=== PATIENT | male | born 1950 | race Caucasian/White ===

== ENCOUNTER 2023-06-02 09:59 | Outpatient (AMB) | payer OTHER, SELFPAY ==
--- NOTE | 2023-06-02 10:28 | MHC.PC.OV ---
Vital Signs 06/02/23 10:29 Height 5 ft 5.75 in Weight 243 lb BMI 39.5 BP 122/78 Blood Pressure Location Lt brachial Position Sitting Pulse 92 Pulse Source Pulse Oximeter Pulse Oximetry (%) 95 Oxygen Delivery Method Room Air Intake Visit Reasons: CHIEF OF VITAL STATISTICS/ Diabetes/ Joint pain Intake Note: Patient is a new patient here to establish care for DMII, COPD, Hx of colon cancer (no colon), Knee pain. Transferring care from [facility], Dr. Moreno in [place] fax: [phone]. Medical records have been requested today. Pt is not taking any previous medications per pt all meds are causing diarrhea. Pt requesting only inhaler refill for his COPD. 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 Accompanied by: Self / Same As Patient Allergies No Known Allergies Allergy (Verified 06/02/23 10:37) Medication List - Last Reconciled 06/02/23 by Jazz Gaines, MELONIE albuterol sulfate 90 mcg/actuation inhalation atorvastatin 20 mg PO DAILY lisinopril 20 mg PO DAILY metformin 1,000 mg PO BID pioglitazone 45 mg PO DAILY Tobacco use date assessed: 06/02/23 Fall risk assessment: No Falls in past year Last assessed Fall Risk: 06/02/23 Dental Screening Dental Screen Date: 06/02/23 Did you have a dental visit in the last 12 months?: No Did you have a dental problem in the last 6 months where you did not have access to dental care?: No Was dental information given to patient?: Yes HPI HPI Comments History of Present Illness Details 72-year-old male new patient presents today to establish care. Past medical history significant for type 2 diabetes mellitus, hypertension, hypercholesteremia, COPD, bilateral knee arthritis, L5-S1 spondylothesis, status post colon total resection. Patient reports that he does not take any of his medications by mouth. Per medication list patient reports he is supposed to be taking lisinopril 20 mg daily, pioglitazone 45mg daily,metformin 1,000mg,atorvastation 20mg daily. Patient reports due to colon Being removed all medications by mouth cause him to have explosive diarrhea and he refuses to take any medications. Patient denies having diarrhea with eating food. Patient reports he did have his pneumonia vaccine, RSV vaccine in flu shot at [facility] he will fax over records to us. Fasting blood work ordered. Patient reports recently moved from [place] 6 months ago, previous PCP Dr. Moreno. [facility] Medical History (Updated 06/02/23 @ 11:04 by MELONIE Prakash) Spondylolisthesis at L5-S1 level Degenerative arthritis of knee, bilateral Surgical History (Updated 06/02/23 @ 10:48 by MELONIE Prakash) History of right hip replacement Status post right colon removal Family History (Updated 06/02/23 @ 10:50 by MELONIE Prakash) Mother No problems noted. Father Leukemia Social History (Updated 06/02/23 @ 10:51 by MELONIE Prakash) Housing: House Alcohol intake: current Alcohol intake frequency: a few times a month Patient Tobacco Use Status: Former Tobacco user Quit Date: 2014 Tobacco use type: Cigarette e-Cigarette/Vaping Use: Currently Using Substance Use Type: Marijuana service: No Current occupational status: retired and disabled Cognitive needs: No Hearing needs: No Vision needs: Yes Questionnaire PHQ-9 Over the last 2 weeks, how often have you been bothered by any of the following problems? 1. Little interest or pleasure in doing things: not at all 2. Feeling down, depressed, or hopeless: not at all 3. Trouble falling or staying asleep, or sleeping too much: not at all 4. Feeling tired or having little energy: not at all 5. Poor appetite or overeating: not at all 6. Feeling bad about yourself - or that you are a failure or have let yourself or your family down: not at all 7. Trouble concentrating on things, such as reading the newspaper or watching television: not at all 8. Moving or speaking so slowly that other people could have noticed. Or the opposite - being so fidgety or restless that you have been moving around a lot more than usual: not at all 9. Thoughts that you would be better off or of hurting yourself in some way: not at all Total score: 0 Depression Screening Interpretation: Negative Depression Screening Done: Yes 95739 - PHQ-9 Billing: Yes Source: Developed by Drs. Arnaldo Haskins, Flor Lynch, Speedy Solis and colleagues, with an educational ivett from [facility]. Thrive Questionnaire Date Thrive assessed: 06/02/23 I am a: Patient What is your living situation today?: I have a steady place to live (Move from [place]/Staying with a sister. ) Within the past 12 months, did the food you bought not last and you didn't have the money to get more?: Never true Within the past 12 months, did you worry whether your food would run out before you got money to buy more?: Never true Do you have trouble paying for medicines?: No Do you have trouble getting transportation to medical appointments?: No Do you have trouble paying your heating and electricity bill?: No Do you have trouble taking care of your child, family member or friend?: No Do you have trouble with day-to-day activities such as bathing, preparing meals, shopping, managing finances, etc.?: No Are you currently unemployed and looking for a job?: No Are you interested in more education?: No Please select the resources that you would like help with: None Currently or been in a relationship where the following occur: no concerns reported AUDIT C Alcohol Use Questionnaire (AUDIT-C) 1. How often do you have a drink containing alcohol?: Monthly or less 2. How many drinks containing alcohol do you have on a typical day when you are drinking?: 1 or 2 3. How often do you have six or more drinks on one occasion?: Never Total Score: 1 NITESH-7 AMB Questionnaire NITESH-7 Date NITESH - 7 assessed: 06/02/23 Feeling nervous, anxious, or on edge: 0 = Not at all Not being able to stop or control worryin = Not at all Worrying too much about different things: 0 = Not at all Trouble relaxin = Not at all Being so restless that it is hard to sit still: 0 = Not at all Becoming easily annoyed or irritable: 0 = Not at all Feeling afraid as if something awful might happen: 0 = Not at all Total NITESH-7 score (0-4 normal; 5-9 mild; 10-14 moderate; 15-21 severe): 0 Source: Developed by Drs. Arnaldo Haskins, Flor Lynch, Speedy Solis and colleagues, with an educational ivett from [facility]. NITESH-7 Assessment Billing NITESH-7 Assessment Tool: NITESH-7 Assessment 18711 Review of Systems Const Denies chills, Denies fatigue, Denies fever(s) and Denies poor appetite Eyes Denies no additional complaints ENT Reports Normal hearing present Card Denies chest pain, Denies syncope, Denies rapid heart rate and Denies dyspnea Resp Denies cough and Denies dyspnea GI Denies change in stool character, Denies constipation, Denies diarrhea, Denies nausea and Denies vomiting Denies dysuria, Denies urinary frequency and Denies urinary urgency Neuro Reports Normal hearing present, Denies confusion and Denies syncope Psych Denies confusion Endo Denies fatigue Physical exam (Primary Care) Vital Signs: Last Vital Signs Pulse 92 06/02/23 10:29 BP 122/78 06/02/23 10:29 Pulse Ox 95 06/02/23 10:29 Oxygen Delivery Method Room Air 06/02/23 10:29 BMI result Body Mass Index 39.5 Tobacco/Smoking Status: Tobacco use Status Tobacco use date assessed 06/02/23 06/02/23 10:37 Patient Tobacco Use Status Former Tobacco user 06/02/23 10:37 Tobacco use type Cigarette 06/02/23 10:37 e-Cigarette/Vaping Use Currently Using 06/02/23 10:37 Depression Screening Interpretation: Negative Currently or been in a relationship where the following occur: no concerns reported Const General: No confusion Orientation/consciousness: No confusion HENMT Head: Yes normocephalic and Yes atraumatic Eyes Conjunctivae: conjunctivae normal Chest Chest palpation & inspection: normal inspection of the chest Resp Effort & Inspection: normal respiratory effort Auscultation: clear to auscultation bilaterally, no crackles, no rhonchi and no wheezes Cardio Rate: regular rate Rhythm: regular rhythm Heart sounds: S1 normal heart sound present and S2 normal heart sound present Peripheral pulses: dorsalis pedis present GI Inspection: Yes normal to inspection General: Yes no CVA tenderness Back/Spine/Pelvis Back: no CVA tenderness Neuro General: No confusion Cranial nerves: Yes Normal hearing present Extrem General: No edema Assessment and Plan Assessment & Plan (1) Hypertension: Code(s): I10 - Essential (primary) hypertension Plan: Follow low-salt diet. Blood pressure below goal today 122/78. (2) Hypercholesteremia: Code(s): E78.00 - Pure hypercholesterolemia, unspecified Plan: Avoid fried foods, chicken skin, eggs, butter,margarine, pastries and?? red meat. Fasting lipid panel ordered. (3) Type 2 diabetes mellitus: Code(s): E11.9 - Type 2 diabetes mellitus without complications Plan: Hemoglobin A1c ordered. Patient refuses to take previously prescribed metformin and pioglitazone, as noted in HPI patient refuses to take any medications by mouth as it causes him to have explosive diarrhea. Patient made aware that sometimes metformin can cause GI sent to if you would consider just taking pioglitazone or trailing reducing the dose of metformin. Patient states he will not take any medications by mouth no matter what they are. (4) COPD (chronic obstructive pulmonary disease): Code(s): J44.9 - Chronic obstructive pulmonary disease, unspecified Plan: Continue on albuterol inhaler as needed. Offered referral to pulmonology however patient declines. Plan Follow-up in 3 months for physical exam Orders: Orders Lipid Panel Today Z13.220 - Encounter for screening for lipoid disorders TSH reflex Free T4 Today Z13.29 - Encounter for screening for other suspected endocrine disorder Complete Blood Count Auto Diff Today Z13.0 - Encounter for screening for diseases of the blood and blood-forming organs and certain disorders involving the immune mechanism Comprehensive [place]. Panel Fast Today E11.9 - Type 2 diabetes mellitus without complications Hemoglobin A1c Today E11.9 - Type 2 diabetes mellitus without complications Medications: New albuterol sulfate 90 mcg/actuation 2 puffs inhalation Q4-6H 6.7 grams 0RF J44.9 - Chronic obstructive pulmonary disease, unspecified Coding Level of Care Code New Pt Level 4 (16838) Diagnoses Hypertension I10 Hypercholesteremia E78.00 Type 2 diabetes mellitus E11.9 COPD (chronic obstructive pulmonary disease) J44.9 Additional Codes NITESH-7 Assessment Billing - NITESH-7 Assessment Tool: NITESH-7 Assessment [id number] ([id number])
[2023-06-02 10:29] VITALS: BP 122/78; PULSE 92; O2SAT 95; BMI 39.5
== END 2023-06-02 11:04 | disposition home or self-care (01) ==
PROVIDERS: PCP Nurse Practitioner Family; Visit Provider Nurse Practitioner Family
DX: I10 Essential (primary) hypertension (principal); E78.00 Pure hypercholesterolemia, unspecified; E11.9 Type 2 diabetes mellitus without complications; J44.9 Chronic obstructive pulmonary disease, unspecified
CPT/HCPCS: 99204

== ENCOUNTER 2024-01-07 10:08 | Outpatient (AMB) | payer OTHER, SELFPAY ==
[2024-01-07 10:10] VITALS: BP 142/80; PULSE 88; O2SAT 93; BMI 38.7
--- NOTE | 2024-01-07 10:10 | MHC.PC.OV ---
Vital Signs 01/07/24 10:10 Height 5 ft 5.75 in Weight 238 lb 0.4 oz BMI 38.7 BP 142/80 H Blood Pressure Location Lt brachial Position Sitting Pulse 88 Pulse Source Pulse Oximeter Pulse Oximetry (%) 93 Oxygen Delivery Method Room Air Intake Visit Reasons: Trans. of Care from AO-Physical Exam - see comment Hospitality Coordinator Required: No Allergies No Known Allergies Allergy (Verified 01/07/24 10:33) Medication List - Last Reconciled 01/07/24 by Musa Lezama MD albuterol sulfate 90 mcg/actuation 2 puffs inhalation Q4-6H ascorbic acid (vitamin C) 1 g PO Q6H cholecalciferol (vitamin D3) 50 mcg PO DAILY cyanocobalamin (vitamin B-12) 1,000 mcg PO DAILY multivit with min-folic acid 120 mcg (Men's Multivitamin Gummies) 1 tab PO DAILY naproxen sodium (Aleve) 440 mg PO DAILY Tobacco use date assessed: 01/07/24 Fall risk assessment: No Falls in past year Last assessed Fall Risk: 01/07/24 Dental Screening Dental Screen Date: 01/07/24 Did you have a dental visit in the last 12 months?: No Did you have a dental problem in the last 6 months where you did not have access to dental care?: No HPI Trans. of Care from AO-Physical Exam - see comment HPI Details 73-year-old obese male with diabetes mellitus COPD hypertension hypercholesterolemia 1st time being seen. She was previously seen here in the office in 05/29/2023 patient has a history of colon cancer and had right colectomy. [facility] Medical History (Updated 01/07/24 @ 10:53 by Musa Lezama MD) Spondylolisthesis at L5-S1 level Degenerative arthritis of knee, bilateral Surgical History (Updated 01/07/24 @ 10:51 by Musa Lezama MD) S/P foot surgery, right H/O hand surgery History of right hip replacement Status post right colon removal Family History (Updated 06/02/23 @ 10:50 by MELONIE Prakash) Mother No problems noted. Father Leukemia Social History (Updated 01/07/24 @ 10:53 by Musa Lezama MD) Housing: House Alcohol intake: current Alcohol intake frequency: a few times a month Comment: once Q 2 week 1-[address] [facility] Patient Tobacco Use Status: Former Tobacco user Quit Date: 2014 Tobacco use type: Cigarette Years Smoked: quit 2015 pack a day 30 year e-Cigarette/Vaping Use: Currently Using Substance Use Type: Marijuana service: No Current occupational status: retired and disabled Cognitive needs: No Hearing needs: No Vision needs: Yes Questionnaire PHQ-9 Over the last 2 weeks, how often have you been bothered by any of the following problems? 1. Little interest or pleasure in doing things: not at all 2. Feeling down, depressed, or hopeless: several days 3. Trouble falling or staying asleep, or sleeping too much: not at all 4. Feeling tired or having little energy: not at all 5. Poor appetite or overeating: not at all 6. Feeling bad about yourself - or that you are a failure or have let yourself or your family down: not at all 7. Trouble concentrating on things, such as reading the newspaper or watching television: nearly every day 8. Moving or speaking so slowly that other people could have noticed. Or the opposite - being so fidgety or restless that you have been moving around a lot more than usual: not at all 9. Thoughts that you would be better off or of hurting yourself in some way: not at all Total score: 4 Depression Screening Interpretation: Negative Depression Screening Done: Yes 64173 - PHQ-9 Billing: Yes Source: Developed by Drs. Arnaldo Haskins, Flor Lynch, Speedy Solis and colleagues, with an educational ivett from [employer]. Thrive Questionnaire Date Thrive assessed: 01/07/24 I am a: Patient What is your living situation today?: I have a steady place to live Within the past 12 months, did the food you bought not last and you didn't have the money to get more?: Never true Within the past 12 months, did you worry whether your food would run out before you got money to buy more?: Never true Do you have trouble paying for medicines?: No Do you have trouble getting transportation to medical appointments?: No Do you have trouble paying your heating and electricity bill?: No Do you have trouble taking care of your child, family member or friend?: No Do you have trouble with day-to-day activities such as bathing, preparing meals, shopping, managing finances, etc.?: No Are you currently unemployed and looking for a job?: No Are you interested in more education?: No Please select the resources that you would like help with: None Currently or been in a relationship where the following occur: no concerns reported THRIVE Score: 0 AUDIT C Alcohol Use Questionnaire (AUDIT-C) 1. How often do you have a drink containing alcohol?: Monthly or less 2. How many drinks containing alcohol do you have on a typical day when you are drinking?: 1 or 2 3. How often do you have six or more drinks on one occasion?: Never Total Score: 1 NITESH-7 AMB Questionnaire NITESH-7 Date NITESH - 7 assessed: 01/07/24 Feeling nervous, anxious, or on edge: 1 = Several days Not being able to stop or control worryin = Several days Worrying too much about different things: 0 = Not at all Trouble relaxin = Not at all Being so restless that it is hard to sit still: 0 = Not at all Becoming easily annoyed or irritable: 0 = Not at all Feeling afraid as if something awful might happen: 0 = Not at all Total NITESH-7 score (0-4 normal; 5-9 mild; 10-14 moderate; 15-21 severe): 2 Source: Developed by Drs. Arnaldo Haskins, Flor Lynch, Speedy Solis and colleagues, with an educational ivett from [employer]. NITESH-7 Assessment Billing NITESH-7 Assessment Tool: NITESH-7 Assessment 29952 Physical exam (Primary Care) Vital Signs: Last Vital Signs Pulse 88 01/07/24 10:10 BP 142/80 H 01/07/24 10:10 Pulse Ox 93 01/07/24 10:10 Oxygen Delivery Method Room Air 01/07/24 10:10 BMI result Body Mass Index 38.7 Tobacco/Smoking Status: Tobacco use Status Tobacco use date assessed 01/07/24 01/07/24 10:11 Patient Tobacco Use Status Former Tobacco user 01/07/24 10:11 Tobacco use type Cigarette 01/07/24 10:11 e-Cigarette/Vaping Use Currently Using 01/07/24 10:11 PHQ-9: PHQ-9 Score PHQ-9: Total score 4 01/07/24 10:36 Depression Screening Interpretation: Negative Thrive Assessment: Date of Thrive Assessment Date Thrive assessed 01/07/24 01/07/24 10:11 Currently or been in a relationship where the following occur: no concerns reported Const General: alert; No acute distress Eyes Conjunctivae: conjunctivae normal Resp Auscultation: clear to auscultation bilaterally Cardio Rate: regular rate Rhythm: regular rhythm GI Inspection: Yes normal to inspection Extrem General: Yes normal to inspection and No edema Results AMB Hemoglobin A1c AMB Hemoglobin A1c 10.7 % Last Edit by SHAYY Buchanan on 01/07/24 10:45 Assessment and Plan Assessment & Plan (1) History of colon cancer: Comment: 2019 Code(s): Z85.038 - Personal history of other malignant neoplasm of large intestine Plan: Patient is advised to follow-up with Gastroenterology (2) Type 2 diabetes mellitus: Code(s): E11.9 - Type 2 diabetes mellitus without complications Plan: Decrease the amount of carbohydrate intake, pasta, bread, rice and potatoes are all sugar and that is aside from all the sweet stuff, remember that fruits are good but they are Sweet also. Declined oral medications due to diarrhea (3) Hypertension: Code(s): I10 - Essential (primary) hypertension Plan: Noted blood pressure to be elevated (4) Hypercholesteremia: Code(s): E78.00 - Pure hypercholesterolemia, unspecified Plan: Avoid fried foods, chicken skin, eggs, butter margarine, pastries and meat. Be it pork or beef they have a lot of cholesterol advised to get the blood work LDL goal of less than 100 and triglyceride of less than 150 (5) COPD (chronic obstructive pulmonary disease): Code(s): J44.9 - Chronic obstructive pulmonary disease, unspecified Plan: Patient on albuterol. (6) History of nicotine dependence: Code(s): Z87.891 - Personal history of nicotine dependence Orders: Orders AMB Hemoglobin A1c Today E11.9 - Type 2 diabetes mellitus without complications Referrals Ophthalmology Referral E11.9 - Type 2 diabetes mellitus without complications Gastroenterology Referral Z85.038 - Personal history of other malignant neoplasm of large intestine Lung Cancer Screening Referral Z87.891 - Personal history of nicotine dependence Podiatry Referral E11.9 - Type 2 diabetes mellitus without complications Medications: New blood sugar diagnostic (FreeStyle Lite Strips) As directed check the BS TID 300 ea 3RF E11.65 - Type 2 diabetes mellitus with hyperglycemia, E11.9 - Type 2 diabetes mellitus without complications lancets (FreeStyle Lancets) As directed check BS QD 100 ea 3RF E11.65 - Type 2 diabetes mellitus with hyperglycemia, E11.9 - Type 2 diabetes mellitus without complications blood-glucose meter (FreeStyle Lite Meter kit) As directed 1 ea 0RF E11.65 - Type 2 diabetes mellitus with hyperglycemia, E11.9 - Type 2 diabetes mellitus without complications Coding Level of Care Code Est Pt Level 4 (52613) Complex EM visit Add On G2211 Diagnoses History of colon cancer Z85.038 Type 2 diabetes mellitus E11.9 Hypertension I10 Hypercholesteremia E78.00 COPD (chronic obstructive pulmonary disease) J44.9 History of nicotine dependence Z87.891 Additional Codes NITESH-7 Assessment Billing - NITESH-7 Assessment Tool: NITESH-7 Assessment 13984 ([id number])
== END 2024-01-07 11:12 | disposition home or self-care (01) ==
PROVIDERS: PCP Internal Medicine; Visit Provider Internal Medicine
DX: Z85.038 Personal history of other malignant neoplasm of large intestine (principal); E11.9 Type 2 diabetes mellitus without complications; I10 Essential (primary) hypertension; E78.00 Pure hypercholesterolemia, unspecified; J44.9 Chronic obstructive pulmonary disease, unspecified; Z87.891 Personal history of nicotine dependence
CPT/HCPCS: 83036; 99214; G2211

== ENCOUNTER 2024-05-26 09:56 | Outpatient (AMB) | payer OTHER, SELFPAY ==
[2024-05-26 09:59] VITALS: BP 138/74; PULSE 102; O2SAT 96; BMI 36.0
--- NOTE | 2024-05-26 09:59 | MHC.PC.OV ---
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 Last seen in 12/28/2023. Lab results showing a hemoglobin A1c of 11.2 12/28/2023 LDL at 98 total cholesterol 179 triglyceride of 179 HDL of 45 PFSH Medical History (Updated 05/26/24 @ 10:43 by Musa Lezama MD) Spondylolisthesis at L5-S1 level Degenerative arthritis of knee, bilateral Surgical History (Updated 01/07/24 @ 10:51 by Musa Lezama MD) S/P foot surgery, right H/O hand surgery History of right hip replacement Status post right colon removal Family History (Updated 06/02/23 @ 10:50 by MELONIE Prakash) Mother No problems noted. Father Leukemia Social History (Updated 01/07/24 @ 10:53 by Musa Lezama MD) Housing: House Alcohol intake: current Alcohol intake frequency: a few times a month Comment: once Q 2 week 1-2 beers Patient Tobacco Use Status: Former Tobacco user Tobacco use type: Cigarette Years Smoked: quit 2015 pack a day 30 year e-Cigarette/Vaping Use: Currently Using Substance Use Type: Marijuana service: No Current occupational status: retired and disabled Cognitive needs: No Hearing needs: No Vision needs: Yes Questionnaire Thrive Questionnaire Date Thrive assessed: 01/07/24 NITESH-7 AMB Questionnaire NITESH-7 Date NITESH - 7 assessed: 01/07/24 Source: Developed by Drs. Arnaldo Haskins, Flor Lynch, Speedy Solis and colleagues, with an educational ivtet from [employer]. Physical exam (Primary Care) Vital Signs: Last Vital Signs Pulse 102 H 05/26/24 09:59 BP 138/74 05/26/24 09:59 Pulse Ox 96 05/26/24 09:59 Oxygen Delivery Method Room Air 05/26/24 09:59 BMI result Body Mass Index 36.0 Tobacco/Smoking Status: Tobacco use Status Tobacco use date assessed 01/07/24 05/26/24 10:03 Patient Tobacco Use Status Former Tobacco user 05/26/24 10:03 Tobacco use type Cigarette 05/26/24 10:03 e-Cigarette/Vaping Use Currently Using 05/26/24 10:03 Thrive Assessment: Date of Thrive Assessment Date Thrive assessed 01/07/24 05/26/24 10:03 Const General: alert; No acute distress Eyes Conjunctivae: conjunctivae normal Resp Auscultation: clear to auscultation bilaterally Cardio Rate: regular rate Rhythm: regular rhythm GI Inspection: Yes normal to inspection Extrem General: Yes normal to inspection and No edema Results AMB Hemoglobin A1c AMB Hemoglobin A1c 9.1 % Last Edit by SHAYY Buchanan on 05/26/24 10:26 Results Reviewed Results Reviewed: Laboratory Last Values Hgb A1c (Clinic) 9.1 % (4.0-6.0) H 05/26/24 09:14 Coding Level of Care Code Est Pt Level 4 (66734) Diagnoses Type 2 diabetes mellitus E11.9 Hypercholesteremia E78.00 Hypertension I10 History of nicotine dependence Z87.891 COPD (chronic obstructive pulmonary disease) J44.9 Assessment & Plan Assessment & Plan (1) Type 2 diabetes mellitus: Comment: [facility] Code(s): E11.9 - Type 2 diabetes mellitus without complications Category: Medical Plan: Decrease the amount of carbohydrate intake, pasta, bread, rice and potatoes are all sugar and that is aside from all the sweet stuff, remember that fruits are good but they are Sweet also. Hemoglobin A1c goal of less than 7.0. Patient on Lantus 20 units once a day only (2) Hypercholesteremia: Code(s): E78.00 - Pure hypercholesterolemia, unspecified Category: Medical Plan: Avoid fried foods, chicken skin, eggs, butter margarine, pastries and meat. Be it pork or beef they have a lot of cholesterol LDL goal of less than 100 and triglyceride of less than 150. Last blood work in December LDL of 98 (3) Hypertension: Code(s): I10 - Essential (primary) hypertension Category: Medical Plan: Continue with blood pressure medication. Decrease salt intake and exercise controlled (4) History of nicotine dependence: Code(s): Z87.891 - Personal history of nicotine dependence Category: Medical Plan: Discussed about doing CT scan of the chest for lung cancer screening? (5) COPD (chronic obstructive pulmonary disease): Code(s): J44.9 - Chronic obstructive pulmonary disease, unspecified Category: Medical Plan: Continue with the inhalers p.r.n. Orders: Orders Microalbumin, Random (w Creat) Today E11.65 - Type 2 diabetes mellitus with hyperglycemia, E11.9 - Type 2 diabetes mellitus without complications Creatinine Urine Today E11.65 - Type 2 diabetes mellitus with hyperglycemia, E11.9 - Type 2 diabetes mellitus without complications AMB Hemoglobin A1c Today E11.9 - Type 2 diabetes mellitus without complications Medications: New tirzepatide (Mounjaro) for 4 weeks 2.5 mg (0.5 mL) subcut QWEEK 2 mL 3RF E11.9 - Type 2 diabetes mellitus without complications
== END 2024-05-26 10:51 | disposition home or self-care (01) ==
PROVIDERS: PCP Internal Medicine; Visit Provider Internal Medicine
DX: E11.9 Type 2 diabetes mellitus without complications (principal); J44.9 Chronic obstructive pulmonary disease, unspecified; E78.00 Pure hypercholesterolemia, unspecified; I10 Essential (primary) hypertension; Z87.891 Personal history of nicotine dependence

== ENCOUNTER → 2024-05-26 09:56 | Outpatient (BNVA) | payer OTHER, SELFPAY | PROVIDERS: PCP Internal Medicine; Visit Provider Internal Medicine | DX: E11.9 Type 2 diabetes mellitus without complications (principal); E78.00 Pure hypercholesterolemia, unspecified; I10 Essential (primary) hypertension; J44.9 Chronic obstructive pulmonary disease, unspecified; E66.9 Obesity, unspecified; Z68.36 Body mass index [BMI] 36.0-36.9, adult; Z87.891 Personal history of nicotine dependence; Z79.899 Other long term (current) drug therapy | CPT/HCPCS: 83036 ==

== ENCOUNTER 2024-09-07 08:54 | Outpatient (AMB) | payer OTHER, SELFPAY ==
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
[2024-09-07 09:16] VITALS: BP 140/78; PULSE 81; O2SAT 98; BMI 36.6
[2024-09-07 09:55] VITALS: BP 124/70
== END 2024-09-07 10:09 | disposition home or self-care (01) ==
PROVIDERS: PCP Internal Medicine; Visit Provider Internal Medicine
DX: E11.9 Type 2 diabetes mellitus without complications (principal); E78.00 Pure hypercholesterolemia, unspecified; I10 Essential (primary) hypertension; J44.9 Chronic obstructive pulmonary disease, unspecified; Z13.9 Encounter for screening, unspecified

== ENCOUNTER → 2024-09-07 08:54 | Outpatient (BNVA) | payer OTHER, SELFPAY | PROVIDERS: PCP Internal Medicine; Visit Provider Internal Medicine | DX: E11.9 Type 2 diabetes mellitus without complications (principal); E78.00 Pure hypercholesterolemia, unspecified; I10 Essential (primary) hypertension; J44.9 Chronic obstructive pulmonary disease, unspecified | CPT/HCPCS: 83036; 96127 ==

== ENCOUNTER 2024-12-12 14:11 | Outpatient (AMB) | payer OTHER, SELFPAY ==
--- NOTE | 2024-12-12 14:14 | A.OFFPC_ITS ---
Vital Signs 12/12/24 14:15 12/12/24 14:31 Height 5 ft 5.75 in Weight 235 lb BMI 38.2 BP 144/80 H 114/70 Blood Pressure Location Lt brachial Lt brachial Position Sitting Sitting Pulse 96 Pulse Source Pulse Oximeter Pulse Oximetry (%) 96 Oxygen Delivery Method Room Air Intake Visit Reasons: 3 Month F/U - see comments Allergies No Known Allergies Allergy (Verified 12/12/24 14:15) Tobacco use date assessed: 09/07/24 Fall risk assessment: No Falls in past year Last assessed Fall Risk: 12/12/24 Dental Screening Dental Screen Date: 09/07/24 [facility] Medical History (Updated 11/25/24 @ 17:10 by Musa Lezama MD) Spondylolisthesis at L5-S1 level Degenerative arthritis of knee, bilateral Surgical History (Updated 01/07/24 @ 10:51 by Musa Lezama MD) S/P foot surgery, right H/O hand surgery History of right hip replacement Status post right colon removal Family History (Updated 09/07/24 @ 09:17 by Brionna Ball CMA) Mother No problems noted. Father Leukemia Social History (Updated 01/07/24 @ 10:53 by Musa Lezama MD) Housing: House Alcohol intake: current Alcohol intake frequency: a few times a month Comment: once Q 2 week 1-2 beers Patient Tobacco Use Status: Former Tobacco user Tobacco use type: Cigarette Years Smoked: quit 2015 pack a day 30 year e-Cigarette/Vaping Use: Currently Using Second Hand Smoke Exposure: Yes Substance Use Type: Marijuana service: No Current occupational status: retired and disabled Cognitive needs: No Hearing needs: No Vision needs: Yes Questionnaire PHQ-9 Over the last 2 weeks, how often have you been bothered by any of the following problems? 1. Little interest or pleasure in doing things: not at all 2. Feeling down, depressed, or hopeless: not at all 3. Trouble falling or staying asleep, or sleeping too much: not at all 4. Feeling tired or having little energy: not at all 5. Poor appetite or overeating: not at all 6. Feeling bad about yourself - or that you are a failure or have let yourself or your family down: not at all 7. Trouble concentrating on things, such as reading the newspaper or watching television: not at all 8. Moving or speaking so slowly that other people could have noticed. Or the opposite - being so fidgety or restless that you have been moving around a lot more than usual: not at all 9. Thoughts that you would be better off or of hurting yourself in some way: not at all Total score: 0 Depression Screening Interpretation: Negative Depression Screening Done: Yes Source: Developed by Drs. Arnaldo Haskins, Flor Lynch, Speedy Solis and colleagues, with an educational ivett from [employer]. Thrive Questionnaire Date Thrive assessed: 09/07/24 I am a: Patient What is your living situation today?: I have a steady place to live Within the past 12 months, did the food you bought not last and you didn't have the money to get more?: I choose not to answer this question Within the past 12 months, did you worry whether your food would run out before you got money to buy more?: I choose not to answer this question Do you have trouble paying for medicines?: I choose not to answer this question Do you have trouble getting transportation to medical appointments?: I choose not to answer this question Do you have trouble paying your heating and electricity bill?: I choose not to answer this question Do you have trouble taking care of your child, family member or friend?: I choose not to answer this question Do you have trouble with day-to-day activities such as bathing, preparing meals, shopping, managing finances, etc.?: I choose not to answer this question Are you currently unemployed and looking for a job?: I choose not to answer this question Are you interested in more education?: I choose not to answer this question Please select the resources that you would like help with: Transportation Currently or been in a relationship where the following occur: I choose not to answer THRIVE Score: 0 AUDIT C Alcohol Use Questionnaire (AUDIT-C) 1. How often do you have a drink containing alcohol?: Never Total Score: 0 NITESH-7 AMB Questionnaire NITESH-7 Date NITESH - 7 assessed: 09/07/24 Feeling nervous, anxious, or on edge: 0 = Not at all Not being able to stop or control worryin = Not at all Worrying too much about different things: 0 = Not at all Trouble relaxin = Not at all Being so restless that it is hard to sit still: 0 = Not at all Becoming easily annoyed or irritable: 0 = Not at all Feeling afraid as if something awful might happen: 0 = Not at all Total NITESH-7 score (0-4 normal; 5-9 mild; 10-14 moderate; 15-21 severe): 0 Source: Developed by Drs. Arnaldo Haskins, Flor Lynch, Speedy Solis and colleagues, with an educational ivett from [employer]. Physical exam (Primary Care) Vital Signs: Last Vital Signs Pulse 96 12/12/24 14:15 BP 114/70 12/12/24 14:31 Pulse Ox 96 12/12/24 14:15 Oxygen Delivery Method Room Air 12/12/24 14:15 BMI result Body Mass Index 38.2 Tobacco/Smoking Status: Tobacco use Status Tobacco use date assessed 09/07/24 12/12/24 14:16 Patient Tobacco Use Status Former Tobacco user 12/12/24 14:16 Tobacco use type Cigarette 12/12/24 14:16 e-Cigarette/Vaping Use Currently Using 12/12/24 14:16 PHQ-9: PHQ-9 Score PHQ-9: Total score 0 12/12/24 14:29 Depression Screening Interpretation: Negative Thrive Assessment: Date of Thrive Assessment Date Thrive assessed 09/07/24 12/12/24 14:16 Currently or been in a relationship where the following occur: I choose not to answer Const General: alert; No acute distress Eyes Conjunctivae: conjunctivae normal Resp Auscultation: clear to auscultation bilaterally Cardio Rate: regular rate Rhythm: regular rhythm GI Inspection: Yes normal to inspection Extrem General: Yes normal to inspection and No edema Results AMB Hemoglobin A1c AMB Hemoglobin A1c 5.6 % Last Edit by Brionna Ball CMA on 12/12/24 14 :29 Results Reviewed Results Reviewed: Laboratory Last Values Hgb A1c (Clinic) 5.6 % (4.0-6.0) 12/12/24 14:16 Coding Level of Care Code Est Pt Level 4 (62980) Complex EM visit Add On G2211 Diagnoses Type 2 diabetes mellitus E11.9 Hypercholesteremia E78.00 Hypertension I10 COPD (chronic obstructive pulmonary disease) J44.9 Obesity (BMI 30-39.9) E66.9 Assessment & Plan Assessment & Plan (1) Type 2 diabetes mellitus: Comment: [facility] Code(s): E11.9 - Type 2 diabetes mellitus without complications Category: Medical Plan: Decrease the amount of carbohydrate intake, pasta, bread, rice and potatoes are all sugar and that is aside from all the sweet stuff, remember that fruits are good but they are Sweet also. Hemoglobin A1c goal of less than 7.0. Patient is on Lantus at 40 units once a day tirzepatide 5 mg once a week (2) Hypercholesteremia: Code(s): E78.00 - Pure hypercholesterolemia, unspecified Category: Medical Plan: Avoid fried foods, chicken skin, eggs, butter margarine, pastries and meat. Be it pork or beef they have a lot of cholesterol LDL goal of less than 100 and triglyceride of less than 150 patient is not on any cholesterol medication (3) Hypertension: Code(s): I10 - Essential (primary) hypertension Category: Medical Plan: Advised continue monitoring blood pressure at home (4) COPD (chronic obstructive pulmonary disease): Code(s): J44.9 - Chronic obstructive pulmonary disease, unspecified Category: Medical Plan: On albuterol inhaler as needed (5) Obesity (BMI 30-39.9): Code(s): E66.9 - Obesity, unspecified Category: Medical Plan: Diet and exercise Plan History of Present Illness The patient is a 74-year-old male presenting with a follow-up visit for diabetes management. He is diagnosed with diabetes mellitus, among other co-morbidities including COPD, hypertension, and hypercholesterolemia. Previous visits revealed his Hemoglobin A1c was 11.2% as of December 2023, but recent measures in August 2024 show improvement to 7.2%. Current therapeutic interventions include insulin administration, specifically Lantus at 40 units daily, and a weekly dose of 5 mg Tirzepatide (Mounjaro). Additionally, the patient is not on cholesterol-lowering pharmacotherapy but maintains dietary targets of LDL below 100 mg/dL and triglycerides below 150 mg/dL. His current weight management efforts reflect a decrease from 241 pounds to 235.5 pounds. The patient notes occasional fasting glucose readings dropping to 110-115 mg/dL but remains asymptomatic for hypoglycemia. His historical surgical background includes colon cancer resection in 2019. Furthermore, he has a longstanding history of nicotine dependence. The patient?s urine [id number]-[id number] ratio is reported as normal, and there is a positive confirmation of continuous attendance to necessary ophthalmological evaluations. Health Maintenance - Blood pressure monitoring recommendation for hypertension management - Dietary and exercise advice to manage blood glucose levels, weight, and hypercholesterolemia - Monitoring of LDL and triglyceride levels - Surveillance of eye health with regular ophthalmological exams Social History - History of nicotine dependence - Efforts in weight management, recent reduction to 235.5 pounds from 241 pounds - Patient reports high water intake Review of Systems - Cardiovascular: Denies chest pain or palpitations - Endocrine: Reports stable blood sugars with recent readings; history of Hemoglobin A1c management for diabetes - Musculoskeletal: Reports requirement for a knee brace and potential need for a cane - Neurological: Denies any acute neurological symptoms Physical Exam Results - Labs: Current Hemoglobin A1c at 7.2% (August 2024); previously at 11.2% (December 2023); Urine [id number] ratio reported as normal Plan 1. 0%. We would adjust his Lantus insulin dosing if necessary to prevent hypoglycemia. We planned to monitor his blood glucose closely, particularly as his Mounjaro injections will soon be increased. Encouraged were his weight management efforts and ongoing dietary and exercise commitments. The patient is advised to regularly use his albuterol inhaler for COPD exacerbations and to monitor his blood pressure at home. Current cholesterol levels will be managed through lifestyle modifications given his absence of lipid-lowering therapy. His colon cancer history emphasizes the importance of continued monitoring and health screening.: Patient was informed and verbally consented to the use of an ambient scribe for clinic note documentation during this visit. Discussion Notes I have advised the patient about the current Hemoglobin A1c goal and have discussed the adjustment in his diabetes management regimen in light of his re cent readings. We addressed the importance of close glucose monitoring, considering the potential increase in Mounjaro dosage. I emphasized the benefits of continued weight management efforts and recommended lifestyle interventions in managing his LDL and triglyceride levels. We reviewed the management strategies for COPD and hypertension and the significance of routine follow-ups for his cancer history. Potential risks, such as hypoglycemia with insulin therapy adjustments, were highlighted, and follow-up laboratory testing was discussed with clear instructions on when to seek immediate care should any concerning symptoms arise. Patient Instructions - Monitor blood glucose regularly, especially with upcoming changes in medication. - Continue dietary and exercise efforts for managing diabetes and weight. - Use albuterol inhaler as needed and record usage. - Regularly check blood pressure at home. - Follow up with recommended laboratory tests (fasting required). - Stay hydrated, aiming for good water intake throughout the day. - Attend scheduled ophthalmological exams for eye health maintenance. - Seek medical attention if experiencing symptoms of low blood sugar or other concerning symptoms. Orders: Orders AMB Hemoglobin A1c Today Z13.9 - Encounter for screening, unspecified Medications: New [KNEE BRACE R] As directed 1 ea 0RF M17.11 - Unilateral primary osteoarthritis, right knee [SEAT CANE] As directed 1 ea 0RF M17.11 - Unilateral primary osteoarthritis, right knee Changed From tirzepatide for 4 weeks 5 mg (0.5 mL) subcut QWEEK 30 days 2.5 mL 3RF E11.9 - Type 2 diabetes mellitus without complications To tirzepatide for 4 weeks 7.5 mg (0.5 mL) subcut QWEEK 2.5 mL 3RF 30 days E11.9 - Type 2 diabetes mellitus without complications
[2024-12-12 14:15] VITALS: BP 144/80; PULSE 96; O2SAT 96; BMI 38.2
[2024-12-12 14:31] VITALS: BP 114/70
== END 2024-12-12 14:46 | disposition home or self-care (01) ==
LOC: HO.HMCH 14:12
PROVIDERS: PCP Internal Medicine; Visit Provider Internal Medicine
DX: E11.9 Type 2 diabetes mellitus without complications (principal); J44.9 Chronic obstructive pulmonary disease, unspecified; Z68.38 Body mass index [BMI] 38.0-38.9, adult; E66.9 Obesity, unspecified; E78.00 Pure hypercholesterolemia, unspecified; I10 Essential (primary) hypertension

== ENCOUNTER → 2024-12-12 14:11 | Outpatient (BNVA) | payer OTHER, SELFPAY | PROVIDERS: PCP Internal Medicine; Visit Provider Internal Medicine | DX: E11.9 Type 2 diabetes mellitus without complications (principal); E78.00 Pure hypercholesterolemia, unspecified; I10 Essential (primary) hypertension; J44.9 Chronic obstructive pulmonary disease, unspecified; E66.9 Obesity, unspecified; Z68.38 Body mass index [BMI] 38.0-38.9, adult | CPT/HCPCS: 83036; 96127 ==

== ENCOUNTER 2025-01-20 13:38 | Outpatient (AMB) | payer OTHER, SELFPAY ==
--- NOTE | 2025-01-20 13:44 | MHC.PC.OV ---
Vital Signs 01/20/25 13:45 Height 5 ft 5.75 in Weight 232 lb 4 oz BMI 37.8 BP 136/66 Blood Pressure Location Lt brachial Position Sitting Pulse 93 Pulse Source Pulse Oximeter Temp 97.5 F Temp Source Temporal Artery Scan Pulse Oximetry (%) 95 Oxygen Delivery Method Room Air Intake Visit Reasons: annual exam Intake Note: Patient is here today for a physical. Splitter Tender Required: No Numerical Control Machine Machinist: Not Required per policy Accompanied by: Self / Same As Patient Allergies No Known Allergies Allergy (Verified 01/20/25 13:44) Medication List - Last Reconciled 01/20/25 by Musa Lezama MD albuterol sulfate 90 mcg/actuation 2 puffs inhalation Q4-6H ascorbic acid (vitamin C) 1 g PO Q6H blood sugar diagnostic ([employer] Verio test strips) As directed check the blood sugar 3 times a day blood-glucose meter ONE TOUCH VERIO As directed checked the blood sugar Three x a day blood-glucose sensor ([employer] G7 Sensor device) As directed blood-glucose,paper cone machine tender,cont ([employer]ex[employer] G7 Stone Paver) As directed cholecalciferol (vitamin D3) 50 mcg PO DAILY cyanocobalamin (vitamin B-12) 1,000 mcg PO DAILY insulin glargine (Lantus Solostar U-100 Insulin) 40 units (0.4 mL) subcut QPM 30 days [knee brace As directed] [KNEE BRACE R As directed] lancets As directed check the blood sugar three a day multivit with min-folic acid 120 mcg (Men's Multivitamin Gummies) 1 tab PO DAILY pen needle, diabetic (BD Ultra-Fine Mini Pen Needle) As directed [SEAT CANE As directed] [seat cane. As directed] tirzepatide 7.5 mg (0.5 mL) subcut QWEEK 30 days Tobacco use date assessed: 01/20/25 Fall risk assessment: No Falls in past year Last assessed Fall Risk: 01/20/25 Dental Screening Dental Screen Date: 09/07/24 [facility] Medical History (Updated 01/20/25 @ 14:21 by Musa Lezama MD) Spondylolisthesis at L5-S1 level Degenerative arthritis of knee, bilateral Surgical History S/P foot surgery, right H/O hand surgery History of right hip replacement Status post right colon removal Family History Mother No problems noted. Father Leukemia Social History (Updated 01/20/25 @ 14:26 by Musa Lezama MD) Housing: House Alcohol intake: current Alcohol intake frequency: a few times a month Comment: - month once Q 2 week 1-2 beers Patient Tobacco Use Status: Former Tobacco user Tobacco use type: Cigarette Years Smoked: quit 2014 pack a day 30 year e-Cigarette/Vaping Use: Currently Using Second Hand Smoke Exposure: Yes Substance Use Type: Marijuana service: No Current occupational status: retired and disabled Cognitive needs: No Hearing needs: No Vision needs: Yes Questionnaire Thrive Questionnaire Date Thrive assessed: 12/12/24 I am a: Patient What is your living situation today?: I have a steady place to live Within the past 12 months, did the food you bought not last and you didn't have the money to get more?: I choose not to answer this question Within the past 12 months, did you worry whether your food would run out before you got money to buy more?: I choose not to answer this question Do you have trouble paying for medicines?: I choose not to answer this question Do you have trouble getting transportation to medical appointments?: I choose not to answer this question Do you have trouble paying your heating and electricity bill?: I choose not to answer this question Do you have trouble taking care of your child, family member or friend?: I choose not to answer this question Do you have trouble with day-to-day activities such as bathing, preparing meals, shopping, managing finances, etc.?: I choose not to answer this question Are you currently unemployed and looking for a job?: I choose not to answer this question Are you interested in more education?: I choose not to answer this question Please select the resources that you would like help with: Transportation Currently or been in a relationship where the following occur: I choose not to answer THRIVE Score: 0 NITESH-7 AMB Questionnaire NITESH-7 Date NITESH - 7 assessed: 09/07/24 Source: Developed by Drs. Arnaldo Haskins, Flor Lynch, Speedy Solis and colleagues, with an educational ivett from [employer]. Review of Systems Const Denies poor appetite and Denies weakness Eyes Denies no additional complaints ENT Reports Normal hearing present, Denies dizziness, Denies nasal congestion, Denies tinnitus and Denies sore throat Card Denies chest pain, Denies syncope, Denies rapid heart rate and Denies dyspnea Resp Denies cough and Denies dyspnea GI Denies change in stool character, Reports constipation, Denies diarrhea, Denies nausea and Denies vomiting Denies dysuria and Denies urinary frequency Neuro Reports Normal hearing present, Denies confusion, Denies dizziness, Denies syncope and Denies weakness Psych Denies confusion Physical exam (Primary Care) Vital Signs: Last Vital Signs Temp 97.5 F 01/20/25 13:45 Pulse 93 01/20/25 13:45 BP 136/66 01/20/25 13:45 Pulse Ox 95 01/20/25 13:45 Oxygen Delivery Method Room Air 01/20/25 13:45 BMI result Body Mass Index 37.8 Tobacco/Smoking Status: Tobacco use Status Tobacco use date assessed 01/20/25 01/20/25 13:50 Patient Tobacco Use Status Former Tobacco user 01/20/25 14:26 Tobacco use type Cigarette 01/20/25 14:26 e-Cigarette/Vaping Use Currently Using 01/20/25 14:26 Thrive Assessment: Date of Thrive Assessment Date Thrive assessed 12/12/24 01/20/25 13:50 Currently or been in a relationship where the following occur: I choose not to answer Const General: No confusion Orientation/consciousness: No confusion HENMT Head: Yes normocephalic Ears: external ears normal and TM's normal bilaterally Face and sinus: Yes normal facial exam Mouth: moist mucous membranes Throat: Yes tonsils normal Eyes Conjunctivae: conjunctivae normal Pupils: Equal, round and reactive pupils present and Pupil accommodation reflex normal Direct Ophthalmoscopy: normal light reflex Neck Neck: No lymphadenopathy Thyroid: Thyroid normal Chest Chest palpation & inspection: normal inspection of the chest Resp Effort & Inspection: normal respiratory effort and no audible wheezes Auscultation: clear to auscultation bilaterally, no crackles, no wheezes and lung sounds not diminished Cardio Rate: regular rate Rhythm: regular rhythm Peripheral pulses: radial pulses present and dorsalis pedis present GI Other: decline rectal exam Palpation (GI): no masses Auscultation: normal bowel sounds and normoactive bowel sounds Rectal Exam - Male: Yes deferred Male General Exam: Yes normal external exam Skin General skin exam: no rashes or lesions noted Rashes: no rashes Neuro General: No confusion Cranial nerves: Yes Equal, round and reactive pupils present and Yes Normal hearing present Cognition (Neuro): normal cognition Gait exam (Neuro): Normal gait present Motor exam (neuro): 5/5 motor strength present throughout Deep tendon reflexes (DTR's): Right brachioradialis reflex intensity grade: 2+, Left brachioradialis reflex intensity grade: 2+, Right patellar reflex intensity grade: 2+ and Left patellar reflex intensity grade: 2+ Extrem General: No edema Coding Level of Care Code Est Pt Prev Care >65y(99740) Diagnoses Annual physical exam Z00.00 Type 2 diabetes mellitus E11.9 Hypertension I10 Hypercholesteremia E78.00 COPD (chronic obstructive pulmonary disease) J44.9 History of colon cancer Z85.038 History of nicotine dependence Z87.891 Obesity (BMI 30-39.9) E66.9 Actinic keratosis L57.0 Assessment & Plan Assessment & Plan (1) Annual physical exam: Code(s): Z00.00 - Encounter for general adult medical examination without abnormal findings Category: Medical Plan: Patient is advised to eat healthy, keep well hydrated, keep active and have adequate sleep. (2) Type 2 diabetes mellitus: Comment: [facility] Code(s): E11.9 - Type 2 diabetes mellitus without complications Category: Medical Plan: Decrease the amount of carbohydrate intake, pasta, bread, rice and potatoes are all sugar and that is aside from all the sweet stuff, remember that fruits are good but they are Sweet also. Hemoglobin A1c goal of less than 7.0 patient on Lantus at 40 units once a day and tirzepatide at 7.5 mg once a week (3) Hypertension: Code(s): I10 - Essential (primary) hypertension Category: Medical Plan: Patient is not on any medication (4) Hypercholesteremia: Code(s): E78.00 - Pure hypercholesterolemia, unspecified Category: Medical Plan: Avoid fried foods, chicken skin, eggs, butter margarine, pastries and meat. Be it pork or beef they have a lot of cholesterol LDL goal of less than 100 and triglyceride of less than 150 (5) COPD (chronic obstructive pulmonary disease): Code(s): J44.9 - Chronic obstructive pulmonary disease, unspecified Category: Medical Plan: Continue with albuterol as needed (6) History of colon cancer: Comment: 2019 Code(s): Z85.038 - Personal history of other malignant neoplasm of large intestine Category: Medical Plan: Discussion about colonoscopy workup. (7) History of nicotine dependence: Code(s): Z87.891 - Personal history of nicotine dependence Category: Medical Plan: Discussion about lung cancer screening program (8) Obesity (BMI 30-39.9): Code(s): E66.9 - Obesity, unspecified Category: Medical Plan: Diet and exercise (9) Actinic keratosis: Code(s): L57.0 - Actinic keratosis Category: Medical Plan History of Present Illness The patient is a 74-year-old male presenting for an annual physical examination and management of chronic conditions. The patient has a history of diabetes mellitus, with the last hemoglobin A1c test conducted in December 2023. The current management includes Lantus at 40 units once a day and semaglutide at 7.5 mg once a week, with a target A1c of less than 7.0%. The patient has a history of Chronic Obstructive Pulmonary Disease (COPD) and continues to use albuterol as needed. The patient was diagnosed with colon cancer in 2019 and underwent a right colectomy. The patient reports no family history of colon cancer and attributes the condition to prior Zantac use. The patient has a history of nicotine dependence, which is a contributing factor to his COPD. The patient has been managing hypercholesterolemia and hypertension, with goals for LDL cholesterol less than 100 mg/dL and triglycerides less than 150 mg/dL. Health Maintenance - Lung cancer screening program discussed - Vaccinations up to date, including shingles, RSV, and pneumonia Social History - Nicotine dependence noted, contributing to COPD Review of Systems - General: Denies fever, chills, or weight loss - Respiratory: Denies dyspnea, cough, or wheezing - Cardiovascular: Denies chest pain or palpitations - Gastrointestinal: Denies nausea, vomiting, diarrhea, or constipation - Genitourinary: Reports nocturia twice per night - Neurological: Denies headaches or dizziness Physical Exam General: Cooperative, healthy appearing, comfortable, no acute distress and well developed Orientation: Patient oriented x3 Limitations: No limitations Head: Normal to inspection Ears: Hearing grossly normal bilaterally Nose: Normal external nose present Face and sinus: Normal facial exam Eyes: Appearance normal, both eyes and all related structures Neck: Normal visual inspection and Yes full ROM Respiratory: Normal respiratory effort and able to speak in complete sentences. Clear to auscultation bilaterally Cardiovascular: Regular rate and rhythm. Normal S1 and S2 GI: Normal to inspection. Soft to palpation and nontender Skin: No rashes or lesions noted Neuro: Patient oriented x3 Extremities: Normal to inspection Results - Labs: Last hemoglobin A1c conducted in December 2023 Plan The management plan for diabetes mellitus includes maintaining the current regimen of Lantus at 40 units daily and semaglutide at 7.5 mg weekly, with a target hemoglobin A1c of less than 7.0%. The patient is advised to continue using albuterol as needed for COPD management. For hypercholesterolemia and hypertension, the patient should aim for an LDL cholesterol level of less than 100 mg/dL and triglycerides of less than 150 mg/dL. A lung cancer screening program was discussed as part of preventative care measures. The patient is encouraged to maintain a healthy lifestyle, including regular exercise and a balanced diet, to support overall health and manage chronic conditions. Vaccinations are up to date, including shingles, RSV, and pneumonia, and the patient is reminded to keep track of vaccination records. Patient was informed and verbally consented to the use of an ambient scribe for clinic note documentation during this visit. Discussion Notes During the visit, I discussed the importance of maintaining diabetes management with the current medication regimen and the target A1c goal. We reviewed the use of albuterol for COPD and emphasized the need for regular monitoring of cholesterol and blood pressure levels. I also highlighted the significance of lung cancer screening and encouraged the patient to continue a healthy lifestyle. We confirmed that vaccinations are up to date and discussed the importance of keeping vaccination records. Follow-up was scheduled for six months to reassess the patient's condition and management plan. Patient Instructions - Continue taking Lantus and semaglutide as prescribed. - Use albuterol as needed for breathing issues. - Aim for LDL cholesterol less than 100 mg/dL and triglycerides less than 150 mg/dL. - Participate in lung cancer screening as discussed. - Maintain a healthy diet and exercise regularly. - Keep track of vaccination records and ensure they are up to date. Orders: Referrals Dermatology Referral L57.0 - Actinic keratosis
[2025-01-20 13:45] VITALS: BP 136/66; PULSE 93; TEMP 36.4; O2SAT 95; BMI 37.8
== END 2025-01-20 14:42 | disposition home or self-care (01) ==
LOC: HO.HMCH 13:38
PROVIDERS: PCP Internal Medicine; Visit Provider Internal Medicine
DX: Z00.00 Encounter for general adult medical examination without abnormal findings (principal); E11.9 Type 2 diabetes mellitus without complications; J44.9 Chronic obstructive pulmonary disease, unspecified; I10 Essential (primary) hypertension; E78.00 Pure hypercholesterolemia, unspecified; Z85.038 Personal history of other malignant neoplasm of large intestine; Z87.891 Personal history of nicotine dependence; E66.9 Obesity, unspecified; L57.0 Actinic keratosis

== ENCOUNTER → 2025-01-20 13:38 | Outpatient (BNVA) | payer OTHER, SELFPAY | PROVIDERS: PCP Internal Medicine; Visit Provider Internal Medicine | DX: Z13.89 Encounter for screening for other disorder (principal) ==

== ENCOUNTER 2025-03-31 14:17 | Outpatient (AMB) | payer OTHER, SELFPAY ==
--- NOTE | 2025-03-31 14:22 | MHC.PC.OV ---
Vital Signs 03/31/25 14:23 Height 5 ft 5.75 in Weight 234 lb 4 oz BMI 38.1 BP 128/66 Blood Pressure Location Lt brachial Position Sitting Pulse 108 H Pulse Source Pulse Oximeter Temp 97.1 F Temp Source Temporal Artery Scan Pulse Oximetry (%) 95 Oxygen Delivery Method Room Air Intake Visit Reasons: DM Allergies No Known Allergies Allergy (Verified 03/31/25 14:27) Medication List - Last Reconciled 03/31/25 by Musa Lezama MD albuterol sulfate 90 mcg/actuation 2 puffs inhalation Q4-6H ascorbic acid (vitamin C) 1 g PO Q6H blood sugar diagnostic ([id number] Verio test strips) As directed check the blood sugar 3 times a day blood-glucose meter ONE TOUCH VERIO As directed checked the blood sugar Three x a day blood-glucose sensor ([employer] G7 Sensor device) As directed blood-glucose,county extension agent,cont ([employer] G7 Certified Medical Technician) As directed cholecalciferol (vitamin D3) 50 mcg PO DAILY cyanocobalamin (vitamin B-12) 1,000 mcg PO DAILY insulin glargine (Lantus Solostar U-100 Insulin) 40 units (0.4 mL) subcut QPM 30 days [knee brace As directed] [KNEE BRACE R As directed] lancets As directed check the blood sugar three a day multivit with min-folic acid 120 mcg (Men's Multivitamin Gummies) 1 tab PO DAILY pen needle, diabetic (BD Ultra-Fine Mini Pen Needle) As directed [SEAT CANE As directed] [seat cane. As directed] tirzepatide 7.5 mg (0.5 mL) subcut QWEEK 30 days Tobacco use date assessed: 03/31/25 Fall risk assessment: No Falls in past year Last assessed Fall Risk: 03/31/25 Dental Screening Dental Screen Date: 03/31/25 Did you have a dental visit in the last 12 months?: No Did you have a dental problem in the last 6 months where you did not have access to dental care?: No Was dental information given to patient?: Patient declined [facility] Medical History Spondylolisthesis at L5-S1 level Degenerative arthritis of knee, bilateral Surgical History S/P foot surgery, right H/O hand surgery History of right hip replacement Status post right colon removal Family History Mother No problems noted. Father Leukemia Social History Housing: House Alcohol intake: current Alcohol intake frequency: a few times a month Comment: - month once Q 2 week 1-2 beers Patient Tobacco Use Status: Former Tobacco user Tobacco use type: Cigarette Years Smoked: quit 2014 pack a day 30 year e-Cigarette/Vaping Use: Currently Using Second Hand Smoke Exposure: Yes Substance Use Type: Marijuana service: No Current occupational status: retired and disabled Cognitive needs: No Hearing needs: No Vision needs: Yes Questionnaire PHQ-9 Over the last 2 weeks, how often have you been bothered by any of the following problems? 1. Little interest or pleasure in doing things: not at all 2. Feeling down, depressed, or hopeless: not at all 3. Trouble falling or staying asleep, or sleeping too much: not at all 4. Feeling tired or having little energy: not at all 5. Poor appetite or overeating: not at all 6. Feeling bad about yourself - or that you are a failure or have let yourself or your family down: not at all 7. Trouble concentrating on things, such as reading the newspaper or watching television: not at all 8. Moving or speaking so slowly that other people could have noticed. Or the opposite - being so fidgety or restless that you have been moving around a lot more than usual: not at all 9. Thoughts that you would be better off or of hurting yourself in some way: not at all Total score: 0 Depression Screening Interpretation: Negative Depression Screening Done: Yes Source: Developed by Drs. Arnaldo Haskins, Flor Lynch, Speedy Solis and colleagues, with an educational ivett from [employer]. Thrive Questionnaire Date Thrive assessed: 12/12/24 I am a: Patient What is your living situation today?: I have a steady place to live Within the past 12 months, did the food you bought not last and you didn't have the money to get more?: I choose not to answer this question Within the past 12 months, did you worry whether your food would run out before you got money to buy more?: I choose not to answer this question Do you have trouble paying for medicines?: I choose not to answer this question Do you have trouble getting transportation to medical appointments?: I choose not to answer this question Do you have trouble paying your heating and electricity bill?: I choose not to answer this question Do you have trouble taking care of your child, family member or friend?: I choose not to answer this question Do you have trouble with day-to-day activities such as bathing, preparing meals, shopping, managing finances, etc.?: I choose not to answer this question Are you currently unemployed and looking for a job?: I choose not to answer this question Are you interested in more education?: I choose not to answer this question Please select the resources that you would like help with: Transportation Currently or been in a relationship where the following occur: I choose not to answer THRIVE Score: 0 AUDIT C Alcohol Use Questionnaire (AUDIT-C) 1. How often do you have a drink containing alcohol?: Never 3. How often do you have six or more drinks on one occasion?: Never Total Score: 0 NITESH-7 AMB Questionnaire NITESH-7 Date NITESH - 7 assessed: 09/07/24 Feeling nervous, anxious, or on edge: 0 = Not at all Not being able to stop or control worryin = Not at all Worrying too much about different things: 0 = Not at all Trouble relaxin = Not at all Being so restless that it is hard to sit still: 0 = Not at all Becoming easily annoyed or irritable: 0 = Not at all Feeling afraid as if something awful might happen: 0 = Not at all Total NITESH-7 score (0-4 normal; 5-9 mild; 10-14 moderate; 15-21 severe): 0 Source: Developed by Drs. Arnaldo Haskins, Flor Lynch, Speedy Solis and colleagues, with an educational ivett from [employer]. Physical exam (Primary Care) Vital Signs: Last Vital Signs Temp 97.1 F 03/31/25 14:23 Pulse 108 H 03/31/25 14:23 BP 128/66 03/31/25 14:23 Pulse Ox 95 03/31/25 14:23 Oxygen Delivery Method Room Air 03/31/25 14:23 BMI result Body Mass Index 38.1 Tobacco/Smoking Status: Tobacco use Status Tobacco use date assessed 03/31/25 03/31/25 14:29 Patient Tobacco Use Status Former Tobacco user 03/31/25 14:29 Tobacco use type Cigarette 03/31/25 14:29 e-Cigarette/Vaping Use Currently Using 03/31/25 14:29 PHQ-9: PHQ-9 Score PHQ-9: Total score 0 03/31/25 15:10 Depression Screening Interpretation: Negative Thrive Assessment: Date of Thrive Assessment Date Thrive assessed 12/12/24 03/31/25 14:29 Currently or been in a relationship where the following occur: I choose not to answer Const General: alert; No acute distress Eyes Conjunctivae: conjunctivae normal Resp Auscultation: clear to auscultation bilaterally Cardio Rate: regular rate Rhythm: regular rhythm GI Inspection: Yes normal to inspection Extrem General: Yes normal to inspection and No edema Results AMB Hemoglobin A1c AMB Hemoglobin A1c 6.2 % Last Edit by La Howard CMA on 03/31/25 14:45 Results Reviewed Results Reviewed: Laboratory Last Values Hgb A1c (Clinic) 6.2 % (4.0-6.0) H 03/31/25 14:29 Coding Level of Care Code Est Pt Level 4 (94789) Complex EM visit Add On G2211 Diagnoses Type 2 diabetes mellitus E11.9 Hypertension I10 Hypercholesteremia E78.00 Obesity (BMI 30-39.9) E66.9 COPD (chronic obstructive pulmonary disease) J44.9 Assessment & Plan Assessment & Plan (1) Type 2 diabetes mellitus: Comment: [facility] Code(s): E11.9 - Type 2 diabetes mellitus without complications Category: Medical Plan: Decrease the amount of carbohydrate intake, pasta, bread, rice and potatoes are all sugar and that is aside from all the sweet stuff, remember that fruits are good but they are Sweet also. Hemoglobin A1c goal of less than 7.0. Patient on Lantus enters appetite (2) Hypertension: Code(s): I10 - Essential (primary) hypertension Category: Medical Plan: Monitor the blood pressure record (3) Hypercholesteremia: Code(s): E78.00 - Pure hypercholesterolemia, unspecified Category: Medical Plan: Avoid fried foods, chicken skin, eggs, butter margarine, pastries and meat. Be it pork or beef they have a lot of cholesterol LDL goal of less than 70 and triglyceride of less than 150 patient needs blood work (4) Obesity (BMI 30-39.9): Code(s): E66.9 - Obesity, unspecified Category: Medical Plan: Diet and exercise (5) COPD (chronic obstructive pulmonary disease): Code(s): J44.9 - Chronic obstructive pulmonary disease, unspecified Category: Medical Plan: Patient is strongly advised to stop smoking! On albuterol inhaler Plan History of Present Illness The patient is a 74-year-old male presenting for a follow-up visit. The patient has a history of diabetes mellitus, with the last recorded hemoglobin A1c of 11.2% in December 2023, indicating poor glycemic control at that time. Recent blood work shows improvement with an A1c of 6.2%. The patient is currently on Lantus for diabetes management. The patient has Chronic Obstructive Pulmonary Disease (COPD) and uses an albuterol inhaler as needed. He requested a refill for his inhaler during the visit. The patient has a history of hypertension and hypercholesterolemia. The current plan includes monitoring blood pressure and maintaining an LDL cholesterol goal of less than 70 mg/dL and triglycerides less than 150 mg/dL through diet and exercise. The patient has a history of colon cancer diagnosed in 2019. The patient is a smoker and has been strongly advised to stop smoking. Health Maintenance - Advised to stop smoking to improve overall health and reduce risk of complications - Recommended to maintain a healthy diet and exercise to manage cholesterol levels - Blood work to be conducted in three months to monitor diabetes and cholesterol levels Social History - Tobacco use: Patient is a smoker Review of Systems - General: Denies fatigue or excessive sleepiness during the day - Respiratory: Denies sleep apnea symptoms such as stopping breathing at night - Hydration: Reports adequate water intake Physical Exam Results - Labs: Hemoglobin A1c improved to 6.2% from 11.2% Plan The management plan for diabetes includes maintaining the current regimen of Lantus and aiming for a hemoglobin A1c goal of less than 7.0%. Blood work is scheduled for three months to monitor diabetes control and lipid levels. For COPD, the patient will continue using the albuterol inhaler as needed, with a refill provided during the visit. The patient is advised to stop smoking to improve respiratory health. Hypertension management includes regular monitoring of blood pressure at home. For hypercholesterolemia, the patient is encouraged to adhere to a diet and exercise plan to achieve LDL and triglyceride goals. Patient was informed and verbally consented to the use of an ambient scribe for clinic note documentation during this visit. Discussion Notes During the visit, I discussed the importance of maintaining a hemoglobin A1c goal of less than 7.0% with the patient, emphasizing the need for regular blood work to monitor diabetes control. I also advised the patient on the benefits of smoking cessation for improving respiratory health and reducing the risk of complications from COPD. We reviewed the importance of diet and exercise in managing cholesterol levels and achieving target LDL and triglyceride goals. Patient Instructions - Continue taking Lantus as prescribed to manage diabetes. - Schedule and complete blood work in three months to check diabetes and cholesterol levels. - Use albuterol inhaler as needed for COPD symptoms. - Stop smoking to improve lung health and reduce COPD complications. - Monitor blood pressure regularly at home. - Follow a healthy diet and exercise plan to manage cholesterol levels. Orders: Orders AMB Hemoglobin A1c Today Z13.9 - Encounter for screening, unspecified Medications: Refilled albuterol sulfate 90 mcg/actuation 2 puffs inhalation Q4-6H 6.7 grams 0RF J44.9 - Chronic obstructive pulmonary disease, unspecified
--- OUTSIDE RECORDS SUMMARY | 2025-03-31 14:22 | XMS_ITS | Clinical Summary ---
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 Name Role Phone Pcp, Unknown Primary Care Provider Unavailabl e Encounters Date Type Department Care Team Description 12/29/2024 10:37 AM EDT - 12/29/2024 11:59 PM EDT Hospital Encounter [facility] [address] [place] [address] Musa Lezama MD Discharge Disposition: Home or Self Care 12/29/2024 Transcribe Orders [facility] [address] [place] [address] Musa Lezama MD Type 2 diabetes mellitus with hyperglycemia, unspecified whether penitentiary insulin use (Primary Dx) from Last 3 Months Social History Tobacco Use Types Packs/Day Years Used Date Smoking Tobacco: Never Assessed Education Answer Date Recorded Are you interested in more education? Not on tanisha e 06/04/2023 Are you concerned about learning? Not on file 06/04/2023 No 06/04/2023 No 06/04/2023 Digital Access Answer Date Recorded No 06/04/2023 No 06/04/2023 Reliable internet access at home? Not on file 06/04/2023 Device with a working camera? Not on file Sex and Gender Information Value Date Recorded Sex Assigned at Not on file Legal Sex Male 10:00 PM EDT Gender Identity Not on file Sexual Orientation Not on file Plan of Treatment Health Maintenance Due Date Last Done Comments Adult Td,Tdap Booster 1951 BLOOD PRESSURE 1951 DEPRESSION SCREENING 1963 SMOKING Hx and SMOKELESS TOBACCO SCREENING 1964 HEPATITIS C SCREENING 1969 PNEUMOCOCCAL VACCINES (50+ years) (1 of 2 - PCV) 1970 COLOGUARD 1996 COLONOSCOPY 1996 COLORECTAL CANCER SCREENING 1996 FIT TEST 1996 FOBT 1996 SIGMOIDOSCOPY 1996 VIRTUAL COLONOSCOPY 1996 ZOSTER VACCINES (1 of 2) 2001 DIABETIC EYE EXAM 12/31/2023 URINE MICROALBUMIN/CREATININ E RATIO 12/31/2023 HEMOGLOBIN A1C 04/01/2024 12/31/2023 COVID-19 VACCINE ( - 2023-2 5 season) 2024 LIPID PANEL 12/29/2025 12/29/2024, 12/31/2023 RSV VACCINE (1 - 1-dose 75+ series) 2026 HEPATITIS A VACCINES Aged Out No long er eligible based on patient's age to complete this topic HIB VACCINES Aged Out No longer eligi ble based on patient's age to complete this topic MENINGOCOCCAL VACCINES (ACWY) Aged Out No longer eligible based on patient's age to complete this topic MENINGOCOCCAL VACCINES (B) Aged Out N o longer eligible based on patient's age to complete this topic Medical Devices Not on file Procedures Procedure Name Priority Date/Time Associated Diagnosis Comments VITAMIN B12 Routine 12/29/2024 10:39 AM EDT Type 2 diabetes mellitus with hyperglycemia, unspecified whether packer operator automatic insulin use FOLATE Routine 12/29/2024 10:39 AM EDT Type 2 diabetes mellitus with hyperglycemia, unspecified whether packer operator automatic insulin use FREE T4 Routine 12/29/2024 10:39 AM EDT Type 2 diabetes mellitus with hyperglycemia, unspecified whether packer operator automatic insulin use LIPID PANEL Routine 12/29/2024 10:39 AM EDT Type 2 diabetes mellitus with hyperglycemia, unspecified whether packer operator automatic insulin use TSH Routine 12/29/2024 10:39 AM EDT Type 2 diabetes mellitus with hyperglycemia, unspecified whether packer operator automatic insulin use CBC AND DIFFERENTIAL Routine 12/29/2024 10:39 AM EDT Type 2 diabetes mellitus with hyperglycemia, unspecified whether penitentiary insulin use HEMOGLOBIN A1C Routine 12/31/2023 9:21 AM EDT Pure hypercholesterolemi a Myxedema heart disease Diabetes mellitus of other type without complication, unspecified whether penitentiary insulin use from Last 3 Months or Most Recently Relevant to Health Maintenance Results * (ABNORMAL) CBC and differential (12/29/2024 10:39 AM EDT) WBC 9.08 4.00 - 11.00 K/uL [facility] RBC 5.93(H) 4.50 - 5.90 M/uL [facility] HGB 17.0 13.5 - 17.5 g/dL [facility] HCT 51.7 41.0 - 53.0 % [facility] PLT 334 150 - 450 K/uL [facility] MCV 87.2 80.0 - 100.0 fL [facility] MCH 28.7 27.0 - 31.0 pg [facility] MCHC 32.9 32.0 - 36.0 g/dL [facility] RDW 13.2 11.5 - 14.5 % [facility] MPV 10.9 8.4 - 12.0 fL [facility] NRBC 0.00 0.00 /100 WBCs [facility] ABSOLUTE NRBC 0.00 0.00 K/uL [facility] DIFF METHOD Auto [facility] NEUTS 69.8 48.0 - 76.0 % [facility] LYMPHS 17.2(L) 18.0 - 41.0 % [facility] MONOS 9.8 4.0 - 11.0 % [facility] EOS 2.2 0.0 - 5.0 % [facility] BASOS 0.8 0.0 - 1.5 % [facility] Granulocytes, immature (%) 0.2 0.0 - 0.9 % [facility] ABSOLUTE NEUTS 6.34 1.92 - 7.60 K/uL [facility] ABSOLUTE LYMPHS 1.56 0.72 - 4.10 K/uL [facility] ABSOLUTE MONOS 0.89 0.16 - 1.10 K/uL [facility] ABSOLUTE EOS 0.20 0.00 - 0.50 K/uL [facility] ABSOLUTE BASOS 0.07 0.00 - 0.15 K/uL [facility] Granulocytes, immature 0.02 0.00 - 0.09 K/uL [facility] Blood 12/29/2024 10:3 9 AM EDT 12/29/2024 10:42 AM EDT us Musa Lezama MD LAB BLOOD ORDERABLES Final Re sult Performing Organization Address [facility]/ZIP Co de Phone Number [address] [address] * TSH (12/29/2024 10:39 AM EDT) TSH 1.31 0.27 - 4.20 uIU/mL [facility] Blood 12/29/2024 10:3 9 AM EDT 12/29/2024 10:42 AM EDT us Musa Lzeama MD LAB BLOOD ORDERABLES Final Re sult Performing Organization Address [facility] Co de Phone Number [address] [address] * Free T4 (12/29/2024 10:39 AM EDT) FREE T4 1.1 0.9 - 1.7 ng/dL [facility] Blood 12/29/2024 10:3 9 AM EDT 12/29/2024 10:42 AM EDT us Musa Lezama MD LAB BLOOD ORDERABLES Final Re sult Performing Organization Address [facility] Co de Phone Number [address] [address] * (ABNORMAL) Folate (12/29/2024 10:39 AM EDT) FOLIC ACID >20.0(H) 4.2 - 19.9 ng/mL [facility] Blood 12/29/2024 10:3 9 AM EDT 12/29/2024 10:42 AM EDT us Musa Lezama MD LAB BLOOD ORDERABLES Final Re sult Performing Organization Address City/[facility]/ZIP Co de Phone Number [address] [address] * Vitamin B12 (12/29/2024 10:39 AM EDT) VITAMIN B12 652 232 - 1,245 pg/mL [facility] Blood 12/29/2024 10:3 9 AM EDT 12/29/2024 10:42 AM EDT us Musa Lezama MD LAB BLOOD ORDERABLES Final Re sult Performing Organization Address [facility] de Phone Number [address] [address] * Lipid panel (12/29/2024 10:39 AM EDT) HDL 41 mg/dL [facility] Comment: Interpretation <40 mg/dL: Low HDL cholesterol (major risk factor for CHD) Greater than or equal to 60 mg/dL: High HDL cholesterol ( negative risk factor for CHD) HDL - cholesterol is affected by a number of factors, e.g. smoking, excerise, hormones, sex and age. CHOLESTEROL 183 0 - 240 mg/dL [facility] TRIGLYCERIDES 138 30 - 160 mg/dL [facility] LDL 114 50 - 129 mg/dL [facility] Comment: LDL levels in terms of risk for coronary heart disease: <100 mg/dL: Optimal 100-129 mg/dL: Near or above optimal 130-159 mg/dL: Borderline high 160-189 mg/dL: High >190 mg/dL: Very High CARDIAC RISK RATIO 4.5 3.4 - 5.0 [facility] Blood 12/29/2024 10:3 9 AM EDT 12/29/2024 10:42 AM EDT us Musa Lezama MD LAB BLOOD ORDERABLES Final Re sult [address] [address] * (ABNORMAL) Hemoglobin A1c (12/31/2023 9:21 AM EDT) HEMOGLOBIN A1C 11.2(H) 4.3 - 5.8 % [facility] Blood 12/31/2023 9:21 AM EDT 12/31/2023 9:29 AM EDT us Provider Not In System PhD LAB BLOOD ORDERABLES Final Result [address] [address] from Last 3 Months or Most Recently Relevant to Health Maintenance Insurance MEDICARE REPLACEMENT MEDICARE REPLACEMENT [id number] MEDICARE REPLACEMENT Care Teams Automotive Power Electronics Engineer Relationship Specialty Start Date End Date Pcp, Unknown PCP - General 06/04/23 Additional Source Comments The information contained in this document represents components of the legal health record. It is not the complete legal health record.[facility]
[2025-03-31 14:23] VITALS: BP 128/66; PULSE 108; TEMP 36.2; O2SAT 95; BMI 38.1
== END 2025-03-31 15:24 | disposition home or self-care (01) ==
LOC: HO.HMCH 14:18
PROVIDERS: PCP Internal Medicine; Visit Provider Internal Medicine
DX: E11.9 Type 2 diabetes mellitus without complications (principal); J44.9 Chronic obstructive pulmonary disease, unspecified; Z68.38 Body mass index [BMI] 38.0-38.9, adult; E66.9 Obesity, unspecified; I10 Essential (primary) hypertension; E78.00 Pure hypercholesterolemia, unspecified

== ENCOUNTER → 2025-03-31 14:17 | Outpatient (BNVA) | payer OTHER, SELFPAY | PROVIDERS: PCP Internal Medicine; Visit Provider Internal Medicine | DX: E11.9 Type 2 diabetes mellitus without complications (principal); I10 Essential (primary) hypertension; E78.00 Pure hypercholesterolemia, unspecified; E66.9 Obesity, unspecified; J44.9 Chronic obstructive pulmonary disease, unspecified; Z68.38 Body mass index [BMI] 38.0-38.9, adult | CPT/HCPCS: 83036; 96127 ==